=== PATIENT | male | born 1930 | race Caucasian/White ===

== ENCOUNTER 2016-08-05 12:31 | Day surgery (SDC) | payer MEDICARE ==
[2016-08-05] MEDS ORDERED: LACTATED RINGERS 1,000 ML IV ONE ×2 (14:01→16:40)
[2016-08-05 14:02] LABS: Basophils % (A) 1 %; CH 28.6; CHCM 32.9; Eosinophils # (A) 0.2 k/uL (0-0.7); Eosinophils % (A) 2 %; HCT 47.1 % (39.0-53.0); HDW 2.53; HGB 15.5 gm/dL (13.0-17.5); Luc # (Auto) 0.31; Luc % (Auto) 4; Lymphocytes # (A) 1.6 k/uL (1.0-4.8); Lymphocytes % (A) 23 %; MCH 28.8 pg (25.0-35.0); MCV 87.4 fL (80.0-100.0); Mean Platelet Volume 7.8; Monocytes # (A) 0.5 k/uL (0-1.0); Monocytes % (A) 7 %; Neutrophils # (A) 4.5 k/uL (1.3-7.7); Neutrophils % (A) 63 %; RBC 5.39 m/uL (4.30-5.90); RDW 13.1 % (11.5-15.5); WBC 7.1 k/uL (3.8-10.6); WBC (Perox) 7.09
[2016-08-05] MEDS ORDERED: LIDOCAINE 1% 20 ML VIAL (10MG/ML) FOR IV START INTRADERMA ONE (14:02)
[2016-08-05 14:05] LABS: Potassium 4.5 mmol/L (3.5-5.1)
[2016-08-05 14:09] LABS: INR 1.1 (<1.1); Prothrombin Time 10.8 sec (9.0-12.0)
[2016-08-05] MEDS ORDERED: LIDOCAINE 1% INJ 10MG/ML (20 ML MDV) ONE (14:49)
[2016-08-05] MEDS ORDERED: MIDAZOLAM 2 MG/2 ML VIAL ONE (14:49)
[2016-08-05] MEDS ORDERED: ETOMIDATE 2 MG/ML 10 ML VIAL ONE (14:49)
[2016-08-05] MEDS ORDERED: SUCCINYLCHOLINE CHLORIDE 100 MG/5 ML SYR IV ONE (14:49)
[2016-08-05] MEDS ORDERED: fentaNYL (PF) 50 MCG/ML 2 ML AMP ONE (14:49)
[2016-08-05] MEDS ORDERED: ceFAZolin 2 GM in SODIUM CHLORIDE 0.9% 100 ML IVPB STA (14:54)
--- NOTE | 2016-08-05 16:07 | P.OP ---
Date of Procedure: 08/05/16 Preoperative Diagnosis: Eroded penile implant Postoperative Diagnosis: Same Procedure(s) Performed: Removal of eroded penile implant Anesthesia: SHUKRI Surgeon: Saúl Hatfield Estimated Blood Loss (ml): 25 Pathology: none sent Condition: stable Disposition: PACU Indications for Procedure: The patient is an 85-year-old gentleman who had an implant placed many years ago presented to the office this morning where the left cylinder eroded out through the urethral meatus. He comes for surgical excision Description of Procedure: The patient brought to the operating suite and given a successful general endotracheal anesthesia. A small incision is made in the scrotum and the scrotal pump and tubing are identified and followed back up into the suprapubic region. A small counter incision is made and I dissect down to the tubing. The tubing is markedly scarred and extremely difficult to dissect out of the scarring. I eventually follow each of the cylinder tubings down to the cylinders. Corporotomies were made and the cylinders are each removed. I then follow with significant difficulty the tubing up into the rectus area where the reservoir lays. I eventually remove the whole reservoir I then irrigate thoroughly. A [place] drain is placed in the region the corporotomies and brought out through separate stab incision. I then pass a 14-Occitan Hillman to make sure that passes not end of the corpora but into the bladder. The first attempt passes of the corpora the second attempt passes into the bladder. I re- irrigate the wound a. I closed the scrotum 2 layers with 3-0 chromic. I closed the abdominal wound over the Marie drain with 3-0 chromic and then the skin with a staple. Patient's awake and returned recovery room good condition. Blood loss is less than 25 mL. The patient be placed in the hospital overnight.
[2016-08-05] MEDS ORDERED: MORPHINE SULFATE 4 MG/ML SYRINGE IVP ONE ×2 (16:34→16:39)
[2016-08-05] MEDS ORDERED: MORPHINE SULFATE 2 MG/ML SYRINGE IV PRN (17:22)
[2016-08-05] MEDS ORDERED: NITROGLYCERIN SL TABS 0.4 MG TAB SUBLINGUAL PRN (17:22)
[2016-08-05] MEDS ORDERED: ACETAMINOPHEN TAB 325 MG TAB PO PRN (17:22)
[2016-08-05] MEDS ORDERED: HYDROcodone/APAP 5-325MG 1 EACH TAB PO PRN (17:22)
[2016-08-05] MEDS: DEXTROSE 5%-0.45% NACL 1,000 ML IV SCH (17:37)
[2016-08-05 17:49] VITALS: BMI 35.1
[2016-08-05] MEDS: BALSALAZIDE DISODIUM 750 MG CAPSULE PO SCH ×2 (18:53→20:04)
[2016-08-05] MEDS: METOPROLOL TARTRATE 25 MG TAB PO SCH (20:04)
[2016-08-05] MEDS: MONTELUKAST 10 MG TAB PO SCH (20:04)
--- NOTE | 2016-08-06 09:00 | P.PN ---
Subjective The patient is in his first postoperative day from surgical removal of an eroded penile implant. He is feeling better. He has not ambulated. His pain is controlled. His wounds look good. He is not ready to be discharged home due to his lack of mobility at this point in time. I will ambulate him and make sure he can care for himself before his discharge home which I suspect will be tomorrow. I will remove the drains tomorrow. Objective - Vital Signs Vital signs: Vital Signs Temp 98.2 F 08/06/16 08:00 Pulse 68 08/06/16 08:00 Resp 18 08/06/16 08:00 BP 133/65 08/06/16 08:00 Pulse Ox 95 08/06/16 08:00 Intake & Output 08/05/16 08/06/16 08/06/16 18:59 06:59 18:59 Intake Total 950 750 Output Total 425 800 Balance 525 -50 Weight 107.955 kg Intake: IV 950 350 Dextrose 5%-0.45% NaCl 1, 350 000 ml @ 50 mls/hr IV . Q20H [facility] Rx#:[id number] Oral 400 Output: Urine 400 800 Estimated Blood Loss 25 Other: Voiding Method Indwelling Catheter Indwelling Catheter - Labs CBC & Chem 7: 08/05/16 13:25 08/05/16 13:25
[2016-08-06] MEDS: LISINOPRIL 20 MG TAB PO SCH (09:30)
[2016-08-06] MEDS: METOPROLOL TARTRATE 25 MG TAB PO SCH (09:31)
[2016-08-06] MEDS: BALSALAZIDE DISODIUM 750 MG CAPSULE PO SCH ×3 (09:31→18:47)
[2016-08-06] MEDS: CLOPIDOGREL 75 MG TAB PO SCH (09:31)
[2016-08-06] MEDS: HYDROCHLOROTHIAZIDE 12.5 MG CAP PO SCH (09:31)
[2016-08-06] MEDS: DONEPEZIL 10 MG TAB PO SCH (09:31)
[2016-08-06] MEDS: ATORVASTATIN 20 MG TAB PO SCH (09:31)
[2016-08-06] MEDS: amLODIPine 5 MG TAB PO SCH (09:31)
[2016-08-06] MEDS: DEXTROSE 5%-0.45% NACL 1,000 ML IV SCH (18:48)
[2016-08-07] MEDS: BALSALAZIDE DISODIUM 750 MG CAPSULE PO SCH ×2 (01:34→08:02)
[2016-08-07] MEDS: METOPROLOL TARTRATE 25 MG TAB PO SCH ×2 (01:34→08:01)
[2016-08-07] MEDS: MONTELUKAST 10 MG TAB PO SCH (01:34)
--- NOTE | 2016-08-07 06:23 | P.DS ---
Providers Attending physician: Saúl Hatfield Primary care physician: Stated None Hospital Course: The patient presented to the office on 08/05/2016 with an eroded penile implant. He was taken to the operating room the same day and the implant was removed. He was kept in the hospital till today. He is beginning to ambulate. He is able to feed himself. His wound looks good. He still has a moderate amount of drainage thus the drain will remain. He'll be discharged home today. He'll follow in the office tomorrow for drain removal. He'll resume his home medications. His activities Limited. He's been given a prescription of Cipro. He can take regular Tylenol for pain. Patient Condition at Discharge: Good Plan - Discharge Summary New Discharge Prescriptions: Ciprofloxacin HCl [Cipro] 500 mg PO Q12HR #14 tablet Discharge Medication List Balsalazide Disodium [Colazal] 750 mg PO QID 08/05/16 [History] Clopidogrel Bisulfate [Plavix] 75 mg PO DAILY 08/05/16 [History] Donepezil HCl [Aricept ODT] 10 mg PO DAILY 08/05/16 [History] Hydrochlorothiazide 12.5 mg PO DAILY 08/05/16 [History] Metoprolol Tartrate 25 mg PO BID 08/05/16 [History] Nitroglycerin Sl Tabs [Nitrostat] 1 tab SL PRN 08/05/16 [History] Prostate Multivitamins 2.4 cap PO BID 08/05/16 [History] Ramipril 10 mg PO DAILY 08/05/16 [History] Simvastatin [Zocor] 40 mg PO DAILY 08/05/16 [History] Zafirlukast 1 tab PO DAILY 08/05/16 [History] amLODIPine BESYLATE [Norvasc] 5 mg PO DAILY 08/05/16 [History] traZODone HCL PRN 08/05/16 [History] Ciprofloxacin HCl [Cipro] 500 mg PO Q12HR #14 tablet 08/07/16 [Rx] Follow up Appointment(s)/Referral(s): Súal Hatfield MD [STAFF PHYSICIAN] - 08/08/16 Activity/Diet/Wound Care/Special Instructions: Home with Hillman catheter. Office to see me tomorrow for drain removal. He can see my PA Briseyda Hobson. Patient may shower. Resume home medications
[2016-08-07 07:48] VITALS: BP 127/66; PULSE 55; RESP 18; TEMP 98.3
[2016-08-07] MEDS: ATORVASTATIN 20 MG TAB PO SCH (08:01)
[2016-08-07] MEDS: amLODIPine 5 MG TAB PO SCH (08:02)
[2016-08-07] MEDS: DONEPEZIL 10 MG TAB PO SCH (08:02)
[2016-08-07] MEDS: CLOPIDOGREL 75 MG TAB PO SCH (08:02)
[2016-08-07] MEDS: HYDROCHLOROTHIAZIDE 12.5 MG CAP PO SCH (08:02)
[2016-08-07] MEDS: LISINOPRIL 20 MG TAB PO SCH (08:02)
== END 2016-08-07 15:00 | disposition home or self-care (01) ==
LOC: OR 12:31 → 3OBS 16:23 → OR 08-07 15:00
PROVIDERS: ATTEND Urology
DX: T83.89XA Other specified complication of genitourinary prosthetic devices, implants and grafts, initial encounter (principal); N52.9 Male erectile dysfunction, unspecified; I25.10 Atherosclerotic heart disease of native coronary artery without angina pectoris; I10 Essential (primary) hypertension; C61 Malignant neoplasm of prostate; J44.9 Chronic obstructive pulmonary disease, unspecified; F17.290 Nicotine dependence, other tobacco product, uncomplicated; E78.5 Hyperlipidemia, unspecified; I25.2 Old myocardial infarction; Z95.5 Presence of coronary angioplasty implant and graft; Z86.73 Personal history of transient ischemic attack (TIA), and cerebral infarction without residual deficits; Z79.02 Long term (current) use of antithrombotics/antiplatelets; Z79.899 Other long term (current) drug therapy; Z88.0 Allergy status to penicillin
CPT/HCPCS: 93005; 80051; 85025; 85610; 85730; 54406; J2250; J2270 ×2; J2001; J3010; J0330